=== PATIENT | female | born 1970 | race Caucasian/White ===

== ENCOUNTER 2017-05-29 00:02 | Emergency (ER) | payer SELFPAY ==
[2017-05-29 01:20] LABS: Basophils # (Auto) 0.1 K/mm3 (0.0-0.1); Basophils % (Auto) 0.3 % (0.0-1.8); Eosinophils # (Auto) 0.1 K/mm3 (0.0-0.4); Eosinophils % (Auto) 0.9 % (0.0-4.3); Hematocrit 24.2 % (30.3-42.9); Lymphocytes # (Auto) 4.3 K/mm3 (1.2-5.4); Lymphocytes % (Auto) 28.1 % (13.4-35.0); Mean Corpuscular HGB Conc 33 % (30-34); Mean Corpuscular Hemoglobin 31 pg (28-32); Mean Corpuscular Volume 93 fl (79-97); Monocytes # (Auto) 1.2 K/mm3 (0.0-0.8); Monocytes % (Auto) 7.5 % (0.0-7.3); Platelet Count 338 K/mm3 (140-440); Red Blood Count 2.61 M/mm3 (3.65-5.03); Red Cell Distribution Width 15.2 % (13.2-15.2)
[2017-05-29] MEDS ORDERED: NACL 0.9% 1000 ML 1,000 ML ONE (02:16)
--- NOTE | 2017-05-29 03:16 | Ultrasound Report ---
FINAL REPORT EXAM: US OB < = 14 WEEKS FETUS HISTORY: vaginal bleeding TECHNIQUE: Transabdominal imaging was obtained of the pelvis along with Doppler interrogation of the uterus. FINDINGS: The uterus is enlarged measuring 16.1 cm x 8.9 cm x 13.1 cm. Within the endometrial cavity is a heterogeneous area of echogenic tissue with interspersed small cystic areas having a snowstorm appearance. The findings compatible with a molar . Invasion within the myometrium cannot entirely be excluded. Free fluid is not seen. The ovaries are not identified. IMPRESSION: Intrauterine molar as described. Ovaries are not identified. Free fluid is not seen.
--- NOTE | 2017-05-29 03:19 | Ultrasound Report ---
FINAL REPORT EXAM: US OB TRANSVAGINAL HISTORY: vaginal bleeding TECHNIQUE: Transvaginal imaging was obtained of the pelvis along with Doppler interrogation of the uterus. FINDINGS: The uterus measures 16.1 cm x 8.9 cm x 13.1 cm. We within the endometrial cavity is heterogeneous material interspersed with small cystic areas compatible with a molar . It measures 8.9 cm in thickness. Invasion involving the wall of the uterus cannot be excluded. Free fluid is not seen. The ovaries are not identified. IMPRESSION: Intrauterine molar . Invasion involving the wall myometrium cannot be excluded. No evidence of free fluid or adnexal masses.
[2017-05-29] MEDS ORDERED: NACL 0.9% 1000 ML 1,000 ML IV ONE ×2 (03:44→04:16)
[2017-05-29] MEDS ORDERED: MORPHINE IV ONE (03:44)
--- NOTE | 2017-05-29 03:56 | Emergency Department Report ---
HPI - General Chief Complaint: Vaginal Bleeding Time Seen by Provider: 05/29/17 02:24 - HPI HPI: The patient is a 47-year-old female who presents for evaluation of vaginal bleeding. She is a G for P2, LMP 12 weeks ago. She complains of mild cramping suprapubic abdominal pain since 11 PM last night, 2 hours prior to arrival, constant since onset, exacerbated with movement, and associated with constant severe vaginal bleeding. The patient denies fever, chills, night sweats, diarrhea, blood in the stool, dark tarry stool, dysuria, hematuria, flank pain, genital discharge, inability to pass flatus. ED Past Medical Hx - Past Medical History Previous Medical History?: No - Surgical History Past Surgical History?: Yes Additional Surgical History: - Social History Smoking Status: Never Smoker Substance Use Type: None ED Review of Systems ROS: Stated complaint: VAGINAL BLEEDING/ Other details as noted in HPI Constitutional: denies: fever ENT: denies: throat or neck pain Respiratory: denies: cough, shortness of breath Cardiovascular: denies: chest pain Endocrine: denies unexplained weight loss or gain Gastrointestinal: reports: abdominal pain, nausea Genitourinary: reports vaginal bleeding denies: dysuria Musculoskeletal: denies: leg swelling Skin: denies: rash Neurological: denies: headache Hematological/Lymphatic: denies: easy bleeding or easy bruising Psych: denies sadness or hopelessness Physical Exam - Physical Exam Vital Signs: Vital Signs 05/29/17 00:36 Temperature 98.9 F Pulse Rate 115 H Respiratory 20 Rate Blood Pressure 124/42 O2 Sat by Pulse 100 Oximetry Physical Exam: General: well-nourished, well-developed, no acute distress Head: Normocephalic, atraumatic Eyes: normal sclera ENT: Mucous membranes are pale and dry Neck: trachea midline, neck supple, No neck stiffness, no cervical adenopathy Respiratory: Breath sounds equal bilaterally, no wheezing, rales, or rhonchi Cardio: S1 and S2 present, no murmurs, rubs, gallops, capillary refill is delayed Abdomen: Normoactive bowel sounds, suprapubic tenderness to palpation present, soft abdomen, no rigidity, no guarding or rebound tenderness Chest WALL/Back: No tenderness to palpation of the chest wall, no CVA tenderness with percussion Musc: No pitting edema Skin: No rash Neuro: no facial drooping, normal speech Psych: Normal affect ED Course Vital Signs 05/29/17 00:36 Temperature 98.9 F Pulse Rate 115 H Respiratory 20 Rate Blood Pressure 124/42 O2 Sat by Pulse 100 Oximetry ED Medical Decision Making - Lab Data Result diagrams: 05/29/17 00:50 05/29/17 04:25 - Medical Decision Making The patient was seen and examined by myself. The patient is placed on a gambling monitor and continuous pulse ox. On initial evaluation, the patient was found to be in no distress. Evaluation orders were placed. The patient was given IV fluid bolus and pain medicine. Lab results reveal elevated wbc of 15, elevated potassium 5.3, low hemoglobin of 8, and elevated hCG level of 484,000. Ultrasound of the pelvis reveals moderate . The on-call [employer] Dr. Leal was contacted. She submitted that as we do not have oncology subspecialty at this facility, and as the patient may need chemotherapy or other oncology related intervention, she requests that the patient be transferred to a facility with oncology. Dr. Edwards, the on-call [facility] [employer] [facility] at [place] [facility] was contacted. She was informed of lack of oncology coverage at this facility and agreed to stop the patient for transfer. The patient was transferred in guarded condition. Critical care attestation.: If time is entered above; I have spent that time in minutes in the direct care of this critically ill patient, excluding procedure time. ED Disposition Clinical Impression: Molar , Vaginal bleeding in , Acute suprapubic pain Disposition: [id number]/TX-[id number] ANOTHER TYPE HLTHCARE Is pt being admited?: No Does the pt Need Aspirin: No Condition: Serious Referrals: IRC RANGEL MD [Primary Care Provider] - 3-5 Days Time of Disposition: 03:55
[2017-05-29] MEDS ORDERED: ZOFRAN IV ONE (03:58)
[2017-05-29] MEDS ORDERED: ZOFRAN ONE (03:59)
[2017-05-29 04:49] LABS: INR 0.95 (0.87-1.13); Partial Thromboplastin Time 23.9 Sec. (24.2-36.6)
[2017-05-29 04:51] LABS: Alanine Aminotransferase 41 units/L (7-56); Albumin 2.9 g/dL (3.9-5); BUN/Creatinine Ratio 25; Blood Urea Nitrogen 15 mg/dL (7-17); Calcium 7.7 mg/dL (8.4-10.2); Hemolysis Index 5
[2017-05-29 05:05] VITALS: BP 121/57
== END 2017-05-29 05:59 | disposition other institution (70) ==
LOC: ED 00:02
DX: O02.0 Blighted ovum and nonhydatidiform mole (principal); Z3A.14 14 weeks gestation of pregnancy
CPT/HCPCS: 36415; 76801; 76817; 80053; 84702; 85025; 85610; 85730; 86850; 86900; 86901; 88305; 96361; 96374; 96375; 99284; J2270; J2405; J7030